=== PATIENT | male | born 1990 | race Caucasian/White ===

== ENCOUNTER 2022-01-24 14:04 | Emergency (ER) | payer SELFPAY ==
[2022-01-24 14:24] VITALS: BP 158/96; PULSE 89; TEMP 99.3; BMI 27.9
[2022-01-24] MEDS ORDERED: DEXAMETHASONE SOD PHOSPHATE 10 MG/1 ML VIAL IM ONE (15:32)
[2022-01-24] MEDS ORDERED: DEXAMETHASONE SOD PHOSPHATE 10 MG/1 ML VIAL ONE (15:41)
== END 2022-01-24 16:14 | disposition home or self-care (01) ==
LOC: JERFT 14:04
PROC: 3E023GC Introduction of Other Therapeutic Substance into Muscle, Percutaneous Approach (ICD-10-PCS; principal; 2022-01-24)
DX: L25.9 Unspecified contact dermatitis, unspecified cause (principal)
CPT/HCPCS: 99284-25; J1100